=== PATIENT | female | born 1950 ===

== ENCOUNTER 2017-05-24 08:42 | Day surgery (SDC) | payer MEDICARE, OTHER | END 2017-05-24 23:07 | disposition home or self-care (01) | LOC: MOI MAM 08:42 | PROC: 0HBU3ZX Excision of Left Breast, Percutaneous Approach, Diagnostic (ICD-10-PCS; principal; 2017-05-24) | DX: N60.32 Fibrosclerosis of left breast (principal) | CPT/HCPCS: 19081; 19082; 88305 ==